=== PATIENT | female | born 1985 | race Caucasian/White ===

== ENCOUNTER 2019-06-25 20:55 | Emergency (ER) | payer OTHER, SELFPAY ==
[2019-06-25 21:01] VITALS: BP 122/66; PULSE 88; RESP 18; TEMP 36.8; O2SAT 96
--- NOTE | 2019-06-25 21:03 | ED_ITS ---
HPI - General Adult General Chief complaint: Abdominal Pain Stated complaint: wants kidneys checked out Time Seen by Provider: 06/25/19 20:59 Source: patient Mode of arrival: Ambulatory Limitations: no limitations History of Present Illness HPI narrative: 34-year-old female here for evaluation of bilateral lower tho racic back pain. Has been going on for the past several weeks. She has chronic back pain from a pelvis fracture however she states this is different from that. She is concerned that potentially is a kidney issue and once her kidneys checked. Has not tried anything for her symptoms prior to arrival Related Data Home Medications Medication Instructions Recorded Confirmed ACETAMINOPHEN #0 02/15/12 [OXYCODONE] 5 mg PO #0 02/15/12 levothyroxine [Synthroid] #0 11/18/16 Previous Rx's Medication Instructions Recorded phenazopyridine [Pyridium] 200 mg PO TID PRN 2 Days #0 tab 11/18/16 sulfamethoxazole-trimethoprim 1 tab PO BID 5 Days #0 tab 11/18/16 Review of Systems Constitutional Constitutional: Denies fever(s) Cardiovascular Cardiovascular: Denies chest pain and Denies dyspnea Respiratory Respiratory: Denies dyspnea Gastrointestinal Gastrointestinal: Denies abdominal pain Genitourinary Genitourinary: Denies dysuria and Denies vaginal discharge Musculoskeletal Musculoskeletal: Reports back pain Integumentary/Breasts Skin/Breast: Denies rash Neurologic Neurologic: Denies behavioral changes Psychiatric Psychiatric: Denies behavioral changes Hematologic/Lymphatic Hematologic/Lymphatic: Denies easy bleeding and Denies easy bruising Patient History Medical History UTI (urinary tract infection) (Inactive) Social History lives independently: Yes Exam Initial Vital Signs Initial Vital Signs: Vital Signs Temperature 98.2 F 06/25/19 21:01 Pulse Rate 88 06/25/19 21:01 Respiratory Rate 18 06/25/19 21:01 Blood Pressure 122/66 06/25/19 21:01 Pulse Oximetry 96 06/25/19 21:01 Const General: cooperative and comfortable Resp Effort & Inspection: normal respiratory effort Auscultation: clear to auscultation bilaterally Cardio Rate: regular rate Rhythm: regular rhythm Back/Spine/Pelvis Thoracic/Lumbar Spine: paraspinal tenderness, No thoracic spinal tenderness and No lumbar spinal tenderness Skin Lesions: no lesions Rashes: no rashes Neuro General: alert and awake Cognition: normal cognition Speech: speech normal Extrem General: normal to inspection and capillary refill normal Psych Appearance: grossly normal and well kempt Course Orders Ordered: ED Orders 06/25/19 21:13 Basic Metabolic Panel Stat 06/25/19 21:20 Urine Culture Stat Urine Microscopic Stat Vital Signs Vital signs: Vital Signs - 8 hr 06/25/19 21:01 Temperature 98.2 F Pulse Rate 88 Respiratory Rate 18 Blood Pressure 122/66 Pulse Oximetry 96 Medical Decision Making Lab Data Lab results reviewed: Yes I reviewed the patient's lab results. Result diagrams: 06/25/19 21:13 Labs: Lab Results 06/25/19 06/25/19 Range/Units 21:13 21:20 Sodium 139 (137-145) mmol/L Potassium 3.9 (3.4-5.1) mmol/L Chloride 103 (98-107) mmol/L Carbon Dioxide 30 (22-32) mmol/L BUN 13 (7-17) mg/dL Creatinine 0.80 (0.52-1.04) mg/dL Estimated GFR > 60.0 (>60) mL/min BUN/Creatinine Ratio 16.3 (6-22) Glucose 85 (70-100) mg/dL Calcium 9.6 (8.4-10.2) mg/dL Urine RBC None seen (0-5/HPF) Urine WBC 1-5/hpf (0-5/HPF) Ur Squamous Epith Cells 1-5 /hpf (0-5/HPF) Urine Bacteria Few (2-10) H (None) Ur Culture Indicated? Specimen cultured Point of Care Testing Test Results Negative Urine Dip Bedside Urine Glucose Negative Bedside Urine Bilirubin - Negative Bedside Urine Ketone +/- 5 Urine Specific [place] 1.015 Bedside Urine Occult Blood +/- Bedside Urine pH 7.0 Bedside Urine Protein +/- 15 Bedside Urine Urobilinogen +/- 1mg Bedside Urine Nitrite - Negative Bedside Urine Leukocytes + 70 Esterase Point of care testing: Point of Care Testing Test Results Negative Urine Dip Bedside Urine Glucose Negative Bedside Urine Bilirubin - Negative Bedside Urine Ketone +/- 5 Urine Specific [place] 1.015 Bedside Urine Occult Blood +/- Bedside Urine pH 7.0 Bedside Urine Protein +/- 15 Bedside Urine Urobilinogen +/- 1mg Bedside Urine Nitrite - Negative Bedside Urine Leukocytes + 70 Esterase MDM Narrative Medical decision making narrative: Kidney functions unremarkable, UA is unremarkable. Urine culture was pending at the time of discharge patient was informed of this. Will hold on further workup for now. Suspect musculoskeletal etiology. Patient was given return precautions and follow-up instructions. She expressed understanding and agreement plan. Discharge Plan Departure Patient Disposition: Home Clinical Impression: Bilateral thoracic back pain Qualifiers: Chronicity: acute Qualified Code(s): M54.6 - Pain in thoracic spine Instructions: DI for Thoracic Back Pain Activity Restrictions/Additional Instructions: Recommend you talk with your primary doctor about the indications for referral to see physical therapy. You can take anti-inflammatories such as Motrin or N aprosyn. Return to the emergency department for any new symptoms Prescriptions: No Action ACETAMINOPHEN Qty: 0 RF: 0 [OXYCODONE] 5 mg PO Qty: 0 RF: 0 levothyroxine [Synthroid] 25 mcg tablet Qty: 0 RF: 0 phenazopyridine [Pyridium] 200 MG tablet 200 mg PO TID PRN2 Days Qty: 0 RF: 0 sulfamethoxazole-trimethoprim 800 MG/160 MG tablet 1 tab PO BID 5 Days Qty: 0 RF: 0
[2019-06-25 21:29] LABS: RBC Urine None Seen (0-5/HPF)
[2019-06-25 21:31] LABS: BUN Creatinine Ratio 16.3 (6-22); Blood Urea Nitrogen 13 mg/dL (7-17); Calcium 9.6 mg/dL (8.4-10.2); Carbon Dioxide 30 mmol/L (22-32); Chloride 103 mmol/L (98-107); Estimated Glomerular Filt Rate > 60.0 mL/min (>60); Glucose 85 mg/dL (70-100); HEMOLYSIS < 15 (0-50); Potassium 3.9 mmol/L (3.4-5.1); Sodium 139 mmol/L (137-145)
[2019-06-25 21:43] LABS: Bacteria Urine Few (2-10); Culture Indicated Urine Specimen Cultured; Squamous Epithelial Cell Urine 1-5 /HPF (0-5/HPF); WBC Urine 1-5/HPF (0-5/HPF)
[2019-06-25 22:06] VITALS: BP 111/72; PULSE 78; RESP 14; O2SAT 97
== END 2019-06-25 22:06 | disposition home or self-care (01) ==
PROVIDERS: Emergency Provider Emergency Medicine
DX: M54.6 Pain in thoracic spine (principal)
CPT/HCPCS: 36415; 80048; 81003; 81015; 81025; 87086; 99282; 99283

== ENCOUNTER 2021-07-08 15:18 | Emergency (ER) | payer OTHER, SELFPAY ==
[2021-07-08 15:23] VITALS: BP 160/65; PULSE 99; RESP 17; TEMP 36.2; O2SAT 99; BMI 22.3
--- NOTE | 2021-07-08 15:27 | DI.RAD.S_ITS ---
PROCEDURE: XR FINGER LT MIN 2V INDICATIONS: crush injury TECHNIQUE: AP hand, 2 views of the left 2nd finger(s) acquired. COMPARISON: None. FINDINGS: Bones: No fractures or dislocations. No suspicious bony lesions. Soft tissues: No suspicious soft tissue calcifications. No radiodense foreign body. No soft tissue gas. IMPRESSION: No fracture. No osseous lesion. If symptoms and/or clinical suspicion for pathology persists, further assessment with repeat radiographs (7-10 days) or advanced imaging (e.g. CT, MRI or bone scan) should be considered. Dictated by: Arianne Archer MD, PhD on 07/08/2021 at 15:13 Approved by: Arianne Archer MD, PhD on 07/08/2021 at 15:13
[2021-07-08] MEDS: ACETAMINOPHEN 325 MG TABLET 650 MG PO (15:31)
[2021-07-08] MEDS: IBUPROFEN 400 MG TABLET 800 MG PO (15:31)
[2021-07-08] MEDS: LIDO 1%/SOD BICARB 8.4% (10ML) 10 ML SYRINGE INJ (16:30)
[2021-07-08] MEDS: TET,DIPH,PERTUSS(ACELL),VAC/PF 0.5 ML SYRINGE IM (16:30)
--- NOTE | 2021-07-08 17:00 | ED.SKABFB ---
HPI - Skin/Abscess/Foreign Bdy General Chief complaint: Skin/Abscess/Foreign Body Stated complaint: lt index finger cut Time Seen by Provider: 07/08/21 16:20 Source: patient Mode of arrival: Ambulatory Limitations: no limitations History of Present Illness HPI narrative: 36-year-old female former smoker with noncontributory medical history presents with a chief complaint of an accidental laceration to her left index finger just prior to arrival. She and her daughter were attempting to take the blades off of a small when male down because it was very windy, the blade cut her finger and she suffered a laceration with bleeding. She denies any numbness or tingling. She denies other injury and is otherwise well and free of complaint. Patient will need a tetanus update Related Data Home Medications Medication Instructions Recorded Confirmed ACETAMINOPHEN #0 02/15/12 [OXYCODONE] 5 mg PO #0 02/15/12 levothyroxine 25 mcg tablet #0 11/18/16 (Synthroid) Previous Rx's Medication Instructions Recorded phenazopyridine 200 mg tablet 200 mg PO TID PRN 2 Days #0 tab 11/18/16 (Pyridium) sulfamethoxazole 800 1 tab PO BID 5 Days #0 tab 11/18/16 mg-trimethoprim 160 mg tablet cephalexin 500 mg capsule 500 mg PO Q6H 7 Days #28 cap 07/08/21 Allergies Allergy/AdvReac Type Severity Reaction Status Date / Time No Known Drug Allergies Allergy Verified 07/08/21 15:26 Review of Systems Review of Systems Narrative: GENERAL: Denies chills, fatigue, malaise, fever, sweats. HEENT: Denies sinus pain, ear pain, sore throat, difficulty swallowing, dizziness. RESPIRATORY: Denies dyspnea, cough, wheezing, hemoptysis, sputum. CARDIOVASCULAR: Denies chest pain, palpitations, orthopnea, edema, GASTROINTESTINAL: Denies nausea, vomiting, abdominal pain, diarrhea, constipation, melena. : Denies dysuria, frequency, incontinence, hematuria, urinary retention. MUSCULOSKELETAL: See HPI SKIN: See HPI NEUROLOGIC: See HPI PSYCHIATRIC: No concerning psychosocial issues. 12 point review of systems is negative except for those stated above Patient History Medical History UTI (urinary tract infection) Social History lives independently: Yes Smoking Status: Former smoker Smoking Status: Former smoker alcohol intake frequency: 0-2 drinks per day Substance Use Type: does not use Exam Narrative Exam Narrative: GEN: AOx3 and in mild distress EYES: Pupils are equal, round, and reactive to light and accommodation. Extraoccular muscles are intact bilaterally. There is no subconjunctival hemorrhage or exudate. CHEST: Lungs are clear to auscultation bilaterally and free of wheezes, rales, or rhonchi. Heart rate is regular rhythm, there are no murmurs, clicks, rubs, or gallops. There is no chest wall tenderness. ABD: Abdomen is soft and nontender. There is no guarding or rebound. Bowel sounds are normal in all 4 quadrants. There is no mass or organomegaly. EXT: 1.5cm flap laceration on volar surface of left index finger near DIP. No foreign body noted. Sensation intact. No tendon injury when viewed in a bloodless field. Full painless ROM of all extremities with no loss of sensation or strength. SKIN: Warm, pink, and dry. No erythema or rash Initial Vital Signs Initial Vital Signs: Vital Signs Temperature 97.2 F L 07/08/21 15:23 Pulse Rate 99 H 07/08/21 15:23 Respiratory Rate 17 07/08/21 15:23 Blood Pressure 160/65 H 07/08/21 15:23 Pulse Oximetry 99 07/08/21 15:23 Procedures Laceration Repair Laceration 1: Site: hand Side (If applicable): left Size (cm): 1.5 Description: flap Depth: simple, single layer Pre-repair: wound explored and irrigated extensively Skin layer closed with: nylon Size (cm): 5-0 Number of sutures: 6 Technique: simple, interrupted Nerve Block Nerve Block 1: Time out performed: Yes Local Anesthetic: lidocaine 1% and with bicarb Amount of anesthesia used (mL): 4 Side: left Nerve Blocks: digital Orthopedic Splinting/Casting Injury #1: Side: left Upper Extremity Injury Location: finger Upper Extremity Immobilizer: aluminum form splint Course Orders Ordered: Discontinued Medications Acetaminophen (Acetaminophen 325 Mg Tablet) 650 mg PO NOW ONE Stop: 07/08/21 15:28 Last Admin: 07/08/21 15:31 Dose: 650 mg Documented by: SHAUNNA Diphtheria/Tetanus/Acell Pertussis (Tet,Diph,Pertuss(Acell),Vac/Pf 0.5 Ml Syringe) 0.5 ml IM .ONCE ONE Stop: 07/08/21 15:28 Last Admin: 07/08/21 16:30 Dose: 0.5 ml Documented by: SWEETIEONEVince Ibuprofen (Ibuprofen 400 Mg Tablet) 800 mg PO NOW ONE Stop: 07/08/21 15:28 Last Admin: 07/08/21 15:31 Dose: 800 mg Documented by: SHAUNNA Lidocaine/Sodium Bicarbonate (Lido 1%/Sod Bicarb 8.4% (10ml) 10 Ml Syringe) 10 ml INJ NOW ONE Stop: 07/08/21 16:22 Last Admin: 07/08/21 16:30 Dose: 10 ml Documented by: SWEETIEONEVince Vital Signs Vital signs: Vital Signs - 8 hr 07/08/21 15:23 Temperature 97.2 F L Pulse Rate 99 H Respiratory Rate 17 Blood Pressure 160/65 H Pulse Oximetry 99 MDM - Skin/Abscess/Foreign Bdy Imaging Data Extremity x-ray #1: Radiologist's Impression: Esperanza Arrington??36??F??1985 ? Allergy/Adv: No Known Drug Allergies (More??) Close Finger X-Ray (Signed) Arianne Archer - 07/08/21 [place] [address] XRay Report Signed Patient: Esperanza Arrington MR#: [id number] : 1985 Acct:[id number] Age/Sex: 36 / F Date of Service: 07/08/21 Loc: ED Accession Number: [id number] ?? Procedure: XR finger LT min 2V Ordering Provider: Luis Jones D.O. PROCEDURE:? XR FINGER LT MIN 2V ? INDICATIONS:? crush injury ? TECHNIQUE:? AP hand, 2 views of the left 2nd finger(s) acquired.? ? COMPARISON:? None. ? FINDINGS:? ? Bones:? No fractures or dislocations.? No suspicious bony lesions.? ? Soft tissues:? No suspicious soft tissue calcifications.? No radiodense foreign body.? No soft tissue gas.? ? IMPRESSION:? No fracture. No osseous lesion. If symptoms and/or clinical suspicion for pathology persists, further assessment with repeat radiographs (7-10 days) or advanced imaging (e.g. CT, MRI or bone scan) should be considered. ? ? Dictated by: Arianne Archer MD, PhD on 07/08/2021 at 15:13 ? ? Approved by: Arianne Archer MD, PhD on 07/08/2021 at 15:13? Discharge Plan Departure Patient Disposition: Home Clinical Impression: Laceration of left index finger Instructions: DI for Laceration Repair Activity Restrictions/Additional Instructions: *You have been diagnosed with [left index finger laceration, no evidence of foreign body, bony injury or tendon laceration *What to do: *Please continue to take your regular medications as directed. [x ] New medication prescriptions sent to your pharmacy: [[facility] in [place]] [ ] New medication written as a paper prescription [ ] No new medications given * Please keep the wound clean and dry to the best of your ability. Please monitor for signs of infection such as redness to the skin or increasing pain. Have the sutures/lamont removed by your doctor in about 7 days. If you are unable to get into your doctor, we would be happy to remove the sutures/lamont in that same timeframe. *If you do not have a primary care provider please contact the [facility] Resource line at [phone]. They will ask some questions about your medical history and help get you set up with a doctor in the community. *Return to Emergency Department if you should have any new, worsening or concerning symptoms, such as [fever greater than 101 F, shaking chills, worsening pain, persistent vomiting or other bothersome symptoms] Prescriptions: New cephalexin 500 mg capsule 500 mg PO Q6H 7 Days Qty: 28 0RF No Action ACETAMINOPHEN Qty: 0 0RF [OXYCODONE] 5 mg PO Qty: 0 0RF levothyroxine [Synthroid] 25 mcg tablet Qty: 0 0RF phenazopyridine [Pyridium] 200 MG tablet 200 mg PO TID PRN2 Days Qty: 0 0RF sulfamethoxazole-trimethoprim 800 MG/160 MG tablet 1 tab PO BID 5 Days Qty: 0 0RF
[2021-07-08 17:23] VITALS: BP 127/76; O2SAT 94
== END 2021-07-08 17:26 | disposition home or self-care (01) ==
PROVIDERS: Emergency Provider Emergency Medicine
DX: S61.211A Laceration without foreign body of left index finger without damage to nail, initial encounter (principal); W26.8XXA Contact with other sharp object(s), not elsewhere classified, initial encounter; Z23 Encounter for immunization
CPT/HCPCS: 12001; 64450; 73140; 90471; 99283; 99284; 90715

== ENCOUNTER 2021-11-20 22:49 | Emergency (ER) | payer OTHER, SELFPAY ==
[2021-11-20 23:01] VITALS: BP 117/56; PULSE 88; RESP 16; TEMP 37.2; O2SAT 98; BMI 22.3
--- NOTE | 2021-11-20 23:13 | DI.RAD.S_ITS ---
PROCEDURE: XR KNEE LT 1TO2V INDICATIONS: spurred by rooster, puncture to medial aspect, swelling/pain TECHNIQUE: 2 views of the knee were acquired. COMPARISON: None. FINDINGS: Bones: No fractures or dislocations. No suspicious bony lesions. Soft tissues: No joint effusion. No suspicious soft tissue calcifications. IMPRESSION: No trauma found, no effusion identified. No gas in the soft tissues seen. Dictated by: Phillip Graham M.D. on 11/20/2021 at 23:49 Approved by: Phillip Graham M.D. on 11/20/2021 at 23:50
--- NOTE | 2021-11-21 00:09 | ED_ITS ---
HPI - Skin/Abscess/Foreign Bdy General Chief complaint: Skin/Abscess/Foreign Body Stated complaint: Left knee injury/rooster attack Time Seen by Provider: 11/21/21 00:05 Source: patient Mode of arrival: Wheelchair Limitations: no limitations History of Present Illness HPI narrative: 36F former smoker with noncontributory medical history presents with her and chief complaint of an injury to her left knee earlier today when interacting with a 1.5 year old rooster that struck her in the knee with it's spur. There is a small puncture wound on the medial aspect of her knee, she immediately felt pain in had difficulty with ambulation while working throughout the day but admits to having significantly improved symptoms over the evening. She does have a moderate bit of swelling but no redness, red streaks nor fever or chills. She does not feel any instability or wobbly sensation to her knee. She states it hurts with ambulation and active range of motion. Related Data Home Medications Medication Instructions Recorded Confirmed ACETAMINOPHEN #0 02/15/12 [OXYCODONE] 5 mg PO #0 02/15/12 levothyroxine 25 mcg tablet #0 11/18/16 (Synthroid) Previous Rx's Medication Instructions Recorded phenazopyridine 200 mg tablet 200 mg PO TID PRN 2 Days #0 tab 11/18/16 (Pyridium) sulfamethoxazole 800 1 tab PO BID 5 Days #0 tab 11/18/16 mg-trimethoprim 160 mg tablet Allergies Allergy/AdvReac Type Severity Reaction Status Date / Time No Known Drug Allergies Allergy Verified 07/08/21 15:26 Review of Systems Review of Systems Narrative: GENERAL: Denies chills, fatigue, malaise, fever, sweats. HEENT: Denies sinus pain, ear pain, sore throat, difficulty swallowing, dizziness. RESPIRATORY: Denies dyspnea, cough, wheezing, hemoptysis, sputum. CARDIOVASCULAR: Denies chest pain, palpitations, orthopnea, edema, GASTROINTESTINAL: Denies nausea, vomiting, abdominal pain, diarrhea, constipation, melena. : Denies dysuria, frequency, incontinence, hematuria, urinary retention. MUSCULOSKELETAL: See HPI SKIN: Denies rash, skin lesions, or other NEUROLOGIC: Denies weakness, headache, numbness, change in speech, confusion, seizures, incoordination. PSYCHIATRIC: No concerning psychosocial issues. 12 point review of systems is negative except for those stated above Patient History Medical History UTI (urinary tract infection) Social History lives independently: Yes Smoking Status: Former smoker Smoking Status: Former smoker alcohol intake frequency: 0-2 drinks per day Substance Use Type: does not use Exam Narrative Exam Narrative: GENERAL: [36] year old patient appears stated age. Well-developed patient, in mild distress. HEAD: Atraumatic. Normocephalic. EYES: Pupils equal round and reactive. Extraocular motions intact. No scleral icterus. No injection or drainage. ENT: Nose without bleeding, purulent drainage. Throat without erythema, tonsillar hypertrophy or exudate. Airway patent. NECK: Trachea midline. Non tender CARDIOVASCULAR: Regular rate and rhythm without murmurs, gallops, or rubs. RESPIRATORY: Clear to auscultation. Breath sounds equal bilaterally. No wheezes, rales, or rhonchi. GASTROINTESTINAL: Abdomen soft, non-tender, nondistended. EXTREMITIES: Moderate effusion left knee, no bony tenderness or ligamentous instability, small puncture wound without bleeding or drainage noted on medial aspect of knee. No erythema, warmth or lymphangitis. No pain on passive range of motion. BACK: Nontender without deformity or crepitance. No flank tenderness. NEURO: AOx3. SKIN: No rash or erythema of visible areas Initial Vital Signs Initial Vital Signs: Vital Signs Temperature 99.0 F 11/20/21 23:01 Pulse Rate 88 11/20/21 23:01 Respiratory Rate 16 11/20/21 23:01 Blood Pressure 117/56 L 11/20/21 23:01 Pulse Oximetry 98 11/20/21 23:01 Course Orders Ordered: ED Orders 11/20/21 23:13 XR knee LT 1to2V Stat Consultations Consultation #1: Discussed with on-call orthopedist, we sure the opinion that given circumstances, this is most likely a mechanical injury and swelling is traumatic as opposed to infectious. There is no redness or warmth and no sign of septic arthritis. We discussed prophylactic antibiotics but given lack of sign of infection would prefer to hold off and encouraged close follow-up Vital Signs Vital signs: Vital Signs - 8 hr 06/04/22 23:01 Temperature 99.0 F Pulse Rate 88 Respiratory Rate 16 Blood Pressure 117/56 L Pulse Oximetry 98 MDM - Skin/Abscess/Foreign Bdy Imaging Data Extremity x-ray #1: Radiologist's Impression: Esperanza Arrington??36??F??1985 ? Allergy/Adv: No Known Drug Allergies (More??) Close Knee X-Ray (Signed) Phillip Graham - 11/20/21 Finger X-Ray (Signed) Arianne Archer - 07/08/21 Launch?[address] [address] XRay Report Signed Patient: Esperanza Arrington MR#: [id number] : 1985 Acct:[id number] Age/Sex: 36 / F Date of Service: 11/20/21 Loc: ED Accession Number: [id number] ?? Proced PROCEDURE:? XR KNEE LT 1TO2V ? INDICATIONS:? spurred by rooster, puncture to medial aspect, swelling/pain ? TECHNIQUE:? 2 views of the knee were acquired.? ? COMPARISON:? None. ? FINDINGS:? ? Bones:? No fractures or dislocations.? No suspicious bony lesions.? ? Soft tissues:? No joint effusion.? No suspicious soft tissue calcifications.? ? ? IMPRESSION:? No trauma found, no effusion identified.? No gas in the soft tissues seen. ? ? Dictated by: Phillip Graham M.D. on 11/20/2021 at 23:49 ? ? Approved by: Phillip Graham M.D. on 11/20/2021 at 23:50 ? Discharge Plan Departure Patient Disposition: Home Clinical Impression: Injury of knee, left Instructions: DI for Knee Pain Activity Restrictions/Additional Instructions: *You have been diagnosed with [left knee injury. As we discussed your history and physical exam as well as x-ray are reassuring. I had a lengthy conversation with the orthopedist and we sure the opinion that the pain and swelling is most likely a consequence of a mechanical injury as opposed to infection but will need to follow closely. *What to do: *Please continue to take your regular medications as directed. [ ] New medication prescriptions sent to your pharmacy: [ ] [ ] New medication written as a paper prescription [x ] No new medications given *Please follow up with your primary care provider in 2-3 days, call for an appointment. Let them know you were seen in the Emergency Department and that we ask that you be seen in follow up. We will electronically transmit a record of today's note if your PCP is in our system *If you do not have a primary care provider please contact the [facility] Resource line at [phone]. They will ask some questions about your medical history and help get you set up with a doctor in the community. *Return to Emergency Department if you should have any new, worsening or concerning symptoms, such as [fever greater than 101 F, shaking chills, worsening pain, persistent vomiting, increased swelling, redness, red streaks or other bothersome symptoms] Prescriptions: No Action ACETAMINOPHEN Qty: 0 0RF [OXYCODONE] 5 mg PO Qty: 0 0RF levothyroxine [Synthroid] 25 mcg tablet Qty: 0 0RF phenazopyridine [Pyridium] 200 MG tablet 200 mg PO TID PRN2 Days Qty: 0 0RF sulfamethoxazole-trimethoprim 800 MG/160 MG tablet 1 tab PO BID 5 Days Qty: 0 0RF Stand Alone Forms: Work Release Note Visit Report Forms: Patient Portal/API
[2021-11-21 01:31] VITALS: BP 101/56; PULSE 87; RESP 15; O2SAT 98
== END 2021-11-21 01:33 | disposition home or self-care (01) ==
PROVIDERS: Emergency Provider Emergency Medicine
DX: S81.032A Puncture wound without foreign body, left knee, initial encounter (principal); W61.32XA Struck by chicken, initial encounter
CPT/HCPCS: 73560; 99281; 99282

== ENCOUNTER 2023-05-30 06:47 | Emergency (ER) | payer OTHER, SELFPAY ==
[2023-05-30] VITALS (11 sets, daily range): BP systolic 101–117; BP diastolic 55–77; PULSE 86–115; RESP 20–24; TEMP 37.8–38; O2SAT 94–99; BMI 20.5
--- NOTE | 2023-05-30 07:04 | ED.FEVER ---
HPI - Fever General Chief Complaint: Upper Respiratory Symptoms Stated Complaint: fever, got kicked by horse on ribs Time Seen by Provider: 05/30/23 06:57 Source: patient Mode of arrival: Ambulatory Limitations: no limitations History of Present Illness HPI Narrative: This is a 38-year-old female with history of prior pelvic fracture from riding horses who presents with complaint fever, cough, mild shortness of breath and nausea starting overnight. Patient states that she was kicked in her right lower chest upper abdomen on Monday, 3 days ago. Patient states she had a lot of layers she does not have any obvious bruising on her chest but did have a little bit tracking down thigh. She notes that has not really been painful. She states she was surprised by this. She has not had any nasal congestion. She denies any head injury. No neck or back pain. She has felt a little short of breath. She states her cough has been a little bit productive but has not looked at it she is just swallowed it. Patient states nausea but no vomiting. Patient states she is had some loose stools. She states that is not totally atypical. No black or blood noted. No dysuria, urgency or frequency. No back or flank pain. Besides bruising her right thigh she has not appreciated any other skin changes. She states the hopes of the horse sort of dragged down her leg and and chest which is why she is the bruising on her leg. Patient states no daily medications. She has had prior surgical fixation for pelvic fracture in the past from riding horses. She states it was a different hoarse. No known drug allergies. Former smoker, drinks 1 alcoholic drink every couple weeks. Denies any recreational drugs. 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 Related Data Home Medications Medication Instructions Recorded Confirmed ACETAMINOPHEN ##0 02/15/12 [OXYCODONE] 5 mg PO ##0 02/15/12 levothyroxine 25 mcg tablet ##0 11/18/16 (Synthroid) Previous Rx's Medication Instructions Recorded phenazopyridine 200 mg tablet 200 mg PO TID PRN 2 days #0 tabs 11/18/16 (Pyridium) sulfamethoxazole 800 1 tab PO BID 5 days #0 tabs 11/18/16 mg-trimethoprim 160 mg tablet azithromycin 250 mg tablet 250 mg PO DAILY 4 days #4 tabs 05/30/23 Allergies Allergy/AdvReac Type Severity Reaction Status Date / Time No Known Drug Allergies Allergy Verified 07/08/21 15:26 Review of Systems Review of Systems ROS Unobtainable: All systems reviewed & are unremarkable except as noted in HPI and below Patient History Medical History UTI (urinary tract infection) Social History lives independently: Yes Smoking Status: Former smoker Smoking Status: Former smoker alcohol intake frequency: 0-2 drinks per day Substance Use Type: does not use Exam Narrative Exam Narrative: GEN: Patient appears in mild distress. HEAD: No evidence of trauma, no raccoon/Foy sign. Patient is warm to the touch. NECK: Nontender, painless range of motion, trachea midline Negative for Nexus criteria, there is no midline line tenderness, distracting injury, altered mental status, neuro deficit, recent EtOH. EYES: PERRLA, EOMI ENT: External inspection normal, trachea is midline, TM's are normal no hemotypanum, Nares are clear patient does have some nasal congestion, no septal hematoma, no dental or oral injury, airway is normal and with normal occlusion, No bony tenderness RESP: Chest is nontender and has symmetric movement, no ecchymosis, breath sounds are normal no crackles, wheezes or rales, patient has mild dry cough. CVS: Heart sounds are normal, no murmur noted, No JVD. ABG/GI: Nontender, soft, normal bowel sounds, no distention, no organomegaly, pelvic rock is negative NEURO: Oriented AOx3, neuro is grossly intact, sensation and motor is normal all 4 extremities moving, cranial nerves II through XII are intact, GCS is 15 PSYCH: Normal mood and affect SKIN: Intact, warm and dry, no crepitus and without decubitus, no ecchymosis or skin changes to the torso. BACK: No CVA tenderness, no vertebral tenderness, no step-off's, no crepitus EXT: Atraumatic the ecchymosis to the right thigh, hips are nontender, no pedal edema, normal color and temperature, normal range of motion of extremities with normal tendon exam, 2+ pulses in all four extremities Initial Vital Signs Initial Vital Signs: Vital Signs Pulse Rate 115 H 05/30/23 06:53 Blood Pressure 110/63 05/30/23 06:53 Pulse Oximetry 99 05/30/23 06:53 Course Orders Ordered: ED Orders 05/30/23 07:16 CT chest abd pel w con Stat EKG-12 Lead Stat 05/30/23 07:35 Complete Blood Count AUTO DIFF Stat Comprehensive Metabolic Panel Stat Lactate (Lactic Acid) Stat Lipase Stat PTT Partial Thromboplastin Angelo Stat Procalcitonin Stat Prothrombin Time INR Stat Troponin & CK Cardiac Panel Stat 05/30/23 07:36 Urine Culture Stat Urine Microscopic Stat 05/30/23 08:20 Blood Culture Stat 05/30/23 08:21 Respiratory Panel (Film Array) Stat Discontinued Medications Acetaminophen (Acetaminophen 325 Mg Tablet) 975 mg PO NOW ONE Stop: 05/30/23 07:17 Last Admin: 05/30/23 08:05 Dose: 975 mg Documented By: DAHIANA Azithromycin (Azithromycin 250 Mg Tablet) 500 mg PO NOW ONE Stop: 05/30/23 08:57 Last Admin: 05/30/23 09:35 Dose: 500 mg Documented By: DAHIANA Sodium Chloride (Normal Saline 0.9%) 1,641 mls @ 547 mls/hr 30 ml/kg infuse over 3 hr (1641 ml) IV NOW ONE Stop: 05/30/23 10:15 Last Infusion: 05/30/23 09:54 Dose: Infused Documented By: Admin: 05/30/23 08:10 Dose: 547 mls/hr Documented By: DAHIANA Vital Signs Vital signs: Vital Signs - 8 hr 05/30/23 06:53 05/30/23 06:53 05/30/23 06:54 Temperature 100.4 F H Pulse Rate 115 H 115 H Respiratory Rate 20 Blood Pressure 110/63 110/63 Pulse Oximetry 99 99 Oxygen Delivery Method Room Air 05/30/23 07:00 05/30/23 07:00 05/30/23 07:54 Temperature Pulse Rate 100 H Respiratory Rate Blood Pressure 115/73 117/77 Pulse Oximetry 99 Oxygen Delivery Method 05/30/23 07:54 05/30/23 08:00 05/30/23 08:00 Temperature Pulse Rate 99 H 100 H Respiratory Rate 24 Blood Pressure 106/57 L Pulse Oximetry 98 98 Oxygen Delivery Method 05/30/23 08:29 05/30/23 08:30 05/30/23 08:30 Temperature 100.0 F H Pulse Rate 96 H Respiratory Rate 23 Blood Pressure 115/67 Pulse Oximetry 99 Oxygen Delivery Method 05/30/23 09:00 05/30/23 09:00 05/30/23 09:30 Temperature Pulse Rate 87 Respiratory Rate 21 Blood Pressure 103/59 L 101/55 L Pulse Oximetry 98 Oxygen Delivery Method 05/30/23 09:30 05/30/23 10:00 05/30/23 10:00 Temperature Pulse Rate 86 96 H Respiratory Rate 20 22 Blood Pressure 102/58 L Pulse Oximetry 96 94 Oxygen Delivery Method 05/30/23 10:30 05/30/23 10:30 Temperature Pulse Rate 97 H Respiratory Rate 21 Blood Pressure 105/59 L Pulse Oximetry 95 Oxygen Delivery Method MDM - Fever Lab Data 05/30/23 07:35 05/30/23 07:35 Labs: Lab Results 05/30/23 05/30/23 05/30/23 Range/Units 07:35 07:36 08:21 WBC 13.7 H (4.5-11.0) X10^3/uL RBC 4.39 (4.0-5.2) X10^6/uL Hgb 12.8 (12.0-16.0) g/dL Hct 38.2 (36-46) % MCV 87.2 (80-100) fL MCH 29.3 (26-34) PG MCHC 33.6 (30-36) % RDW 12.9 (11.6-14.8) % Plt Count 259 (150-400) X10^3/uL Neut % (Auto) 88.6 H (50-75) % Lymph % (Auto) 5.3 L (25-40) % Wagoner % (Auto) 5.7 (3-14) % Eos % (Auto) 0.1 L (2-4) % Baso % (Auto) 0.3 (0-2) % Neut # (Auto) 01680 H (4051-2222) /uL Lymph # (Auto) 700 L (8293-9056) /uL [place]er # (Auto) 800 (0-900) /uL Eos # (Auto) 0 (0-450) /uL Baso # (Auto) 0 (0-100) /uL PT 14.0 H (9.4-12.5) SECONDS INR 1.2 (0.9-1.3) APTT 29 (25.1-36.5) SECONDS Sodium 138 (137-145) mmol/L Potassium 3.9 (3.4-5.1) mmol/L Chloride 105 (98-107) mmol/L Carbon Dioxide 25 (22-32) mmol/L BUN 12 (7-17) mg/dL Creatinine 0.75 (0.52-1.04) mg/dL Estimated GFR > 60 (>60) mL/min BUN/Creatinine Ratio 16.0 (6-22) Glucose 120 H (70-100) mg/dL Lactate 1.1 (0.7-2.1) mmol/L Calcium 9.8 (8.4-10.2) mg/dL Total Bilirubin 0.6 (0.2-1.3) mg/dL AST 24 (14-36) IU/L ALT 20 (<35) IU/L Alkaline Phosphatase 66 (38-126) U/L Total Creatine Kinase 32 (30-135) U/L Troponin I < 0.012 (0.01-0.034) ng/mL Total Protein 7.7 (6.3-8.2) g/dL Albumin 4.4 (3.5-5.0) g/dL Globulin 3.3 (1.7-4.1) g/dL Albumin/Globulin Ratio 1.3 (1.0-2.8) Lipase 51 (23-300) U/L Procalcitonin 0.04 (<0.5) ng/mL Urine RBC 0-1/hpf (0-5/HPF) Urine WBC 0-1/hpf (0-5/HPF) Ur Squamous Epith Cells 10-30 /hpf H D (0-5/HPF) Urine Bacteria Few (2-10) H (None) Urine Mucus 1+ H (Negative) Ur Culture Indicated? Cult not indicated Chlamy pneumoniae PCR Not detected (Not Detect) Adenovirus (PCR) Not detected (Not Detect) B.parapertussis DNA PCR Not detected (Not Detecte) Coronavirus OC43 (PCR) Not detected (Not Detect) Coronavirus HKU1 (PCR) Not detected (Not Detect) Coronavirus 229E (PCR) Not detected (Not Detect) SARS-CoV-2 (PCR) Not detected (Not Detecte) Coronavirus NL63 (PCR) Not detected (Not Detect) Human Metapneumovir PCR Not detected (Not Detect) Influenza Type A (PCR) Not detected (Not Detect) Influenza Type B (PCR) Not detected (Not Detect) M. pneumoniae (PCR) Not detected (Not Detect) Parainfluenza 1 (PCR) Not detected (Not Detect) Parainfluenza 2 (PCR) Not detected (Not Detect) Parainfluenza 3 (PCR) Not detected (Not Detect) Parainfluenza 4 (PCR) Not detected (Not Detect) RSV (PCR) Not detected (Not Detect) Entero/Rhino (PCR) Not detected (Not Detect) Point of Care Testing Test Results Negative Urine Dip Bedside Urine Glucose Negative Bedside Urine Bilirubin - Negative Bedside Urine Ketone - Negative Urine Specific [place] 1.020 Bedside Urine Occult Blood - Negative Bedside Urine pH 6.5 Bedside Urine Protein - Negative Bedside Urine Urobilinogen - Negative Bedside Urine Nitrite - Negative Bedside Urine Leukocytes - Negative Esterase Imaging Data CT chest/abd/pelvis: Radiologist's Impression: [place] [address] CT Scan Report Signed Patient: Esperanza Arrington MR#: [id number] : 1985 Acct:[id number] Age/Sex: 38 / F Date of Service: 05/30/23 Loc: Accession Number: [id number] Procedure: CT chest abd pel w con Ordering Provider: Tereza May D.O. PROCEDURE: CT CHEST ABD PEL W CON INDICATIONS: fever, cough x1 day, kicked r chest/abd by horse monday TECHNIQUE: After the administration of oral and intravenous contrast, axial sections acquired from the supraclavicular neck to the pubic symphysis. Coronal and sagittal reformats were performed. For radiation dose reduction, the following was used: automated exposure control, adjustment of mA and/or kV according to patient size. COMPARISON: [facility], CT, CHEST ABDOMEN PELVIS WITH CONTRAST, 10/01/2011, 19:04. Outside Film, CT, CT CHEST ABDOMEN PELVIS WITH TRAUMA, 10/01/2011, 19:04. FINDINGS: Image quality: Good Lungs and pleura: There are nodular consolidations mostly in the left lower lobe. Basilar scarring/atelectasis also seen. No pleural effusions. No pneumothorax. Mediastinum, heart, and esophagus: No hiatal hernia. Normal heart size. No pathologic lymph nodes by size criteria. No mediastinal hematoma. Chest wall and thyroid: Left thyroid nodule measures over 1.5 centimeters. Breast implants are present. Solid organs: Liver appears unremarkable. There is focal fat around the falciform ligament. No lacerations. Gallbladder is unremarkable. No pathologic dilation of the biliary tree or pancreatic duct. No splenic capsular hematoma or laceration. No adrenal nodule or hematoma. No suspicious renal lesions or evidence of traumatic injury. No hydronephrosis. Vessels and lymph nodes: The main portal vein appears patent. There is no abdominal aortic aneurysm or pathologic lymph nodes by size criteria. Bowel and peritoneum: No evidence of hemoperitoneum or small bowel obstruction. Body wall: Unremarkable Pelvis: Uterus is retroflexed. An IUD is in place. There are prominent adnexal vessels can sometimes be seen with pelvic congestion. Bladder is unremarkable, under distended. Bones: Pelvic fixation hardware in old traumatic deformities. There is metallic artifact around the pelvis. No acute fracture or traumatic subluxation of the thoracolumbar spine. IMPRESSION: Left lower lung nodular consolidations, probably infectious/inflammatory. No pneumothorax or hemothorax. Consider future imaging surveillance to assess for resolution. No other evidence of acute traumatic injury identified. Left thyroid nodule over 1.5 centimeters, consider nonurgent sonographic follow-up. Other findings above. Approved by: Rodger Gonzalez M.D. 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 Patient does have recent history significant for being kicked in the chest by horse at the right upper chest and abdomen. She does not have a lot of pain but has fever cough so concerning for potential intrathoracic or intra-abdominal injury. Patient's received 30 cc/kilos fluid bolus, Tylenol and had improvement of heart rate, fever. Blood pressure has been 102 systolic prior to discharge but patient has a low BMI in his quite small and this maybe close to her baseline she appears to run in the 110 from prior visit. CBC shows leukocytosis of 13.7 hemoglobin 12 leftward shift with platelets of 259. No bandemia. Coags are negative. CMP shows normal renal function, electrolytes glucose of 120 normal lactate at 1.1, LFTs and lipase were negative, procalcitonin is negative with a negative troponin as well. Urine point of care was negative. Microscopy showed shows 10-30 squamous epithelials few bacteria no red cells. Point of care is negative. Respiratory panel was negative. CT chest abdomen pelvis was obtained shows left-sided changes consistent with pneumonia. Patient was kicked on the right side. She states she did not fall or hit her left-sided any point she states standing. No other fractures or intrathoracic or intra-abdominal injuries noted. Patient received dose of oral antibiotic here for bacterial pneumonia. Vitals have improved she is felt safe for disposition home. Discussed return precautions. All questions answered. Discharge Plan Departure Patient Disposition: Home Clinical Impression: Pneumonia, Left thyroid nodule Activity Restrictions/Additional Instructions: You have incidental left thyroid nodule noted on your imaging. Please follow-up with your physician in the future to have this evaluated if it has not been already. Your imaging shows changes consistent with pneumonia on the left lung, it is recommended that you follow-up with primary care in the next 4-6 weeks to have repeat x-ray to make sure pneumonia has resolved. Take Tylenol up to a 1000 mg and/or ibuprofen up to 600 mg every 6 hours as needed for fevers. Take antibiotics until completed. You received your 1st dose of antibiotic today, you can start your oral prescription tomorrow. Prescription sent to [facility] in [place]. Please return for new or worsening symptoms increasing chest pain, shortness of breath, lightheadedness or passing out, persistent vomiting, black or bloody stools or other new or concerning changes. Prescriptions: New azithromycin 250 mg tablet 250 mg PO DAILY 4 Days Qty: 4 0RF Rx Instructions: You received 500 mg p.o. in the emergency department, start this dose of antibiotic tomorrow on 05/31/2023. No Action ACETAMINOPHEN Qty: 0 [OXYCODONE] 5 mg PO Qty: 0 levothyroxine [Synthroid] 25 mcg tablet Qty: 0 phenazopyridine [Pyridium] 200 MG tablet 200 mg PO TID PRN2 Days Qty: 0 0RF sulfamethoxazole-trimethoprim 800 MG/160 MG tablet 1 tab PO BID 5 Days Qty: 0 0RF Stand Alone Forms: Patient Portal/API, Work Release Note
--- NOTE | 2023-05-30 07:16 | DI.CT.S_ITS ---
PROCEDURE: CT CHEST ABD PEL W CON INDICATIONS: fever, cough x1 day, kicked r chest/abd by horse monday TECHNIQUE: After the administration of oral and intravenous contrast, axial sections acquired from the supraclavicular neck to the pubic symphysis. Coronal and sagittal reformats were performed. For radiation dose reduction, the following was used: automated exposure control, adjustment of mA and/or kV according to patient size. COMPARISON: [facility], CT, CHEST ABDOMEN PELVIS WITH CONTRAST, 10/01/2011, 19:04. Outside Film, CT, CT CHEST ABDOMEN PELVIS WITH TRAUMA, 10/01/2011, 19:04. FINDINGS: Image quality: Good Lungs and pleura: There are nodular consolidations mostly in the left lower lobe. Basilar scarring/atelectasis also seen. No pleural effusions. No pneumothorax. Mediastinum, heart, and esophagus: No hiatal hernia. Normal heart size. No pathologic lymph nodes by size criteria. No mediastinal hematoma. Chest wall and thyroid: Left thyroid nodule measures over 1.5 centimeters. Breast implants are present. Solid organs: Liver appears unremarkable. There is focal fat around the falciform ligament. No lacerations. Gallbladder is unremarkable. No pathologic dilation of the biliary tree or pancreatic duct. No splenic capsular hematoma or laceration. No adrenal nodule or hematoma. No suspicious renal lesions or evidence of traumatic injury. No hydronephrosis. Vessels and lymph nodes: The main portal vein appears patent. There is no abdominal aortic aneurysm or pathologic lymph nodes by size criteria. Bowel and peritoneum: No evidence of hemoperitoneum or small bowel obstruction. Body wall: Unremarkable Pelvis: Uterus is retroflexed. An IUD is in place. There are prominent adnexal vessels can sometimes be seen with pelvic congestion. Bladder is unremarkable, under distended. Bones: Pelvic fixation hardware in old traumatic deformities. There is metallic artifact around the pelvis. No acute fracture or traumatic subluxation of the thoracolumbar spine. IMPRESSION: Left lower lung nodular consolidations, probably infectious/inflammatory. No pneumothorax or hemothorax. Consider future imaging surveillance to assess for resolution. No other evidence of acute traumatic injury identified. Left thyroid nodule over 1.5 centimeters, consider nonurgent sonographic follow-up. Other findings above. Approved by: Rodger Gonzalez M.D. on 05/30/2023 at 8:43
[2023-05-30 07:53] LABS: Add Manual Diff / Slide Review NO; Basophils Absolute Auto 0 /uL (0-100); Basophils Percent Auto 0.3 % (0-2); Eosinophils Absolute Auto 0 /uL (0-450); Eosinophils Percent Auto 0.1 % (2-4); Hematocrit 38.2 % (36-46); Hemoglobin 12.8 g/dL (12.0-16.0); Lymphocytes Absolute Auto 700 /uL (1100-4500); Lymphocytes Percent Auto 5.3 % (25-40); Mean Corpuscular HGB Conc 33.6 % (30-36); Mean Corpuscular Hemoglobin 29.3 PG (26-34); Mean Corpuscular Volume 87.2 fL (80-100); Monocytes Absolute Auto 800 /uL (0-900); Monocytes Percent Auto 5.7 % (3-14); Neutrophils Absolute Auto 12100 /uL (1500-7000); Neutrophils Percent Auto 88.6 % (50-75); Platelet Count 259 X10^3/uL (150-400); Red Blood Cell Count 4.39 X10^6/uL (4.0-5.2); Red Cell Distribution Width 12.9 % (11.6-14.8); White Blood Cell Count 13.7 X10^3/uL (4.5-11.0)
[2023-05-30 08:01] LABS: INR 1.2 (0.9-1.3)
[2023-05-30] MEDS: ACETAMINOPHEN 325 MG TABLET 975 MG PO (08:05)
[2023-05-30 08:07] LABS: Lactate (Lactic Acid) 1.1 mmol/L (0.7-2.1)
[2023-05-30 08:08] LABS: Alanine Aminotransferase 20 IU/L (<35); Albumin 4.4 g/dL (3.5-5.0); Albumin Globulin Ratio 1.3 (1.0-2.8); Alkaline Phosphatase 66 U/L (38-126); Aspartate Aminotransferase 24 IU/L (14-36); Bilirubin Total 0.6 mg/dL (0.2-1.3); Blood Urea Nitrogen 12 mg/dL (7-17); Calcium 9.8 mg/dL (8.4-10.2); Carbon Dioxide 25 mmol/L (22-32); Chloride 105 mmol/L (98-107); Creatine Kinase 32 U/L (30-135); Estimated Glomerular Filt Rate > 60 mL/min (>60); Globulin 3.3 g/dL (1.7-4.1); Glucose 120 mg/dL (70-100); HEMOLYSIS < 15 (0-50); Lipase 51 U/L (23-300); Potassium 3.9 mmol/L (3.4-5.1); Sodium 138 mmol/L (137-145); Total Protein 7.7 g/dL (6.3-8.2)
[2023-05-30] MEDS: SODIUM CHLORIDE 0.9% 1,641 ML 547 ML IV (08:10)
[2023-05-30 08:11] LABS: PTT Partial Thromboplastin Tim 29 SECONDS (25.1-36.5)
[2023-05-30 08:12] LABS: Bacteria Urine Few (2-10); Mucus Urine 1+ (Negative); RBC Urine 0-1/HPF (0-5/HPF); Squamous Epithelial Cell Urine 10-30 /HPF (0-5/HPF); WBC Urine 0-1/HPF (0-5/HPF)
[2023-05-30 08:16] LABS: Culture Indicated Urine Cult Not Indicated
[2023-05-30 08:20] LABS: Troponin I < 0.012 ng/mL (0.01-0.034)
[2023-05-30 08:24] LABS: Procalcitonin 0.04 ng/mL (<0.5)
[2023-05-30 09:20] LABS: Adenovirus Not Detected (Not Detect); B. parapertussis Not Detected (Not Detecte); Bordetella pertussis Not Detected (Not Detect); Chlamydophila pneumoniae Not Detected (Not Detect); Coronavirus 229E Not Detected (Not Detect); Coronavirus HKU1 Not Detected (Not Detect); Coronavirus NL 63 Not Detected (Not Detect); Coronavirus OC43 Not Detected (Not Detect); Human Metapneumovirus Not Detected (Not Detect); Human Rhinovirus/Enterovirus Not Detected (Not Detect); Influenza A Not Detected (Not Detect); Influenza B Not Detected (Not Detect); Mycoplasma pneumoniae Not Detected (Not Detect); Parainfluenza Virus 1 Not Detected (Not Detect); Parainfluenza Virus 2 Not Detected (Not Detect); Parainfluenza Virus 3 Not Detected (Not Detect); Parainfluenza Virus 4 Not Detected (Not Detect); Respiratory Syncytial Virus Not Detected (Not Detect); SARS- CoV-2 Not Detected (Not Detecte)
[2023-05-30] MEDS: AZITHROMYCIN 250 MG TABLET 500 MG PO (09:35)
== END 2023-05-30 10:45 | disposition home or self-care (01) ==
PROVIDERS: Emergency Provider Emergency Medicine
DX: J18.9 Pneumonia, unspecified organism (principal); E04.1 Nontoxic single thyroid nodule; Z87.891 Personal history of nicotine dependence
CPT/HCPCS: 36415; 71260; 74177; 80053; 81003; 81015; 81025; 82550; 83605; 83690; 84145; 84484; 85025; 85610; 85730; 87040; 87086; 87633; 96360; 96361; 99284; Q9967

== ENCOUNTER 2023-06-05 13:15 | Emergency (ER) | payer OTHER, SELFPAY ==
[2023-06-05] VITALS (9 sets, daily range): BP systolic 104–119; BP diastolic 53–65; PULSE 79–113; RESP 20; TEMP 37; O2SAT 96–100; BMI 20.5
--- NOTE | 2023-06-05 13:45 | ED_ITS ---
HPI - Fever General Chief Complaint: Fever Stated Complaint: pneumonia last week got better now fever Time Seen by Provider: 06/05/23 13:33 Source: patient Mode of arrival: Ambulatory History of Present Illness HPI Narrative: Patient comes to the ED because of fatigue, malaise and fever. A week ago she was kicked by her horse and was seen 2 days after that and diagnosed with pneumonia and contusions but no dangerous injuries identified. She was put on azithromycin and was feeling quite a bit better by the end of the week including returning to work but now since yesterday she is begun to feel poorly again with intense fatigue rapid heart rate, some shortness of breath cough and low-grade fever. She took her last azithromycin dose on Monday. She does not smoke cigarettes nor does she have any chronic health conditions. She is some chronic low back pain because of a pelvic injury some years ago. Related Data Home Medications Medication Instructions Recorded Confirmed ACETAMINOPHEN ##0 02/15/12 [OXYCODONE] 5 mg PO ##0 02/15/12 levothyroxine 25 mcg tablet ##0 11/18/16 (Synthroid) Previous Rx's Medication Instructions Recorded phenazopyridine 200 mg tablet 200 mg PO TID PRN 2 days #0 tabs 11/18/16 (Pyridium) sulfamethoxazole 800 1 tab PO BID 5 days #0 tabs 11/18/16 mg-trimethoprim 160 mg tablet Allergies Allergy/AdvReac Type Severity Reaction Status Date / Time No Known Drug Allergies Allergy Verified 06/05/23 13:25 Patient History Medical History UTI (urinary tract infection) Social History lives independently: Yes Smoking Status: Former smoker Smoking Status: Former smoker alcohol intake frequency: 0-2 drinks per day Substance Use Type: does not use Exam Narrative Exam Narrative: GENERAL: Alert, cooperative and in no distress. HEAD: Atraumatic. Normocephalic. EYES: Sclera are clear without icterus. Extraocular movements are full. ENT: No rhinorrhea NECK: Supple. Full range of motion. CARDIOVASCULAR: Normal rate and rhythm without murmur gallop or rub. RESPIRATORY: Clear to auscultation. Breath sounds equal bilaterally. No wheezes, rales, or rhonchi. GASTROINTESTINAL: Abdomen soft, non-tender, nondistended. EXTREMITIES: No edema, full range of motion. No obvious trauma. BACK: Normal inspection, no CVA tenderness. NEURO: Nonfocal examination, normal speech SKIN: No rash or erythema of visible areas PSYCH: Normally oriented. Normal range of affect. Appropriate behavior Initial Vital Signs Initial Vital Signs: Vital Signs Temperature 98.6 F 06/05/23 13:25 Pulse Rate 113 H 06/05/23 13:25 Respiratory Rate 20 06/05/23 13:25 Blood Pressure 111/65 06/05/23 13:25 Pulse Oximetry 100 06/05/23 13:25 Oxygen Delivery Method Room Air 06/05/23 13:25 Course Orders Ordered: ED Orders 06/05/23 13:50 CBC Auto Diff [Complete Blood Count AUTO DIFF] Stat CMP [Comprehensive Metabolic Panel] Stat Covid-19 + FLU A/B + RSV - PCR Stat D Dimer Stat 06/05/23 14:32 UA dip and micro [Urinalysis and Microscopic] Stat Discontinued Medications Acetaminophen (Acetaminophen 325 Mg Tablet) 975 mg PO NOW ONE Stop: 06/05/23 13:44 Last Admin: 06/05/23 13:58 Dose: 975 mg Documented By: MARYSE Ibuprofen (Ibuprofen 400 Mg Tablet) 800 mg PO NOW ONE Stop: 06/05/23 13:44 Last Admin: 06/05/23 13:58 Dose: 800 mg Documented By: MARYSE Vital Signs Vital signs: Vital Signs - 8 hr 06/05/23 13:25 06/05/23 13:50 06/05/23 14:00 Temperature 98.6 F Pulse Rate 113 H 104 H Respiratory Rate 20 Blood Pressure 111/65 Pulse Oximetry 100 98 99 Oxygen Delivery Method Room Air 06/05/23 14:02 06/05/23 14:02 06/05/23 14:30 Temperature Pulse Rate 106 H Respiratory Rate Blood Pressure 113/61 109/56 L Pulse Oximetry 99 Oxygen Delivery Method Room Air 06/05/23 14:30 06/05/23 15:00 06/05/23 15:00 Temperature Pulse Rate 91 H 91 H Respiratory Rate Blood Pressure 113/57 L Pulse Oximetry 97 96 Oxygen Delivery Method 06/05/23 15:30 06/05/23 15:30 06/05/23 16:00 Temperature Pulse Rate 88 86 Respiratory Rate Blood Pressure 119/55 L Pulse Oximetry 96 96 Oxygen Delivery Method 06/05/23 16:00 Temperature Pulse Rate Respiratory Rate Blood Pressure 104/55 L Pulse Oximetry Oxygen Delivery Method MDM - Fever Lab Data 06/05/23 13:50 06/05/23 13:50 Labs: Lab Results 06/05/23 06/05/23 Range/Units 13:50 14:32 WBC 8.9 (4.5-11.0) X10^3/uL RBC 4.43 (4.0-5.2) X10^6/uL Hgb 13.0 (12.0-16.0) g/dL Hct 38.2 (36-46) % MCV 86.3 (80-100) fL MCH 29.3 (26-34) PG MCHC 33.9 (30-36) % RDW 12.7 (11.6-14.8) % Plt Count 321 (150-400) X10^3/uL Neut % (Auto) 86.5 H (50-75) % Lymph % (Auto) 4.1 L (25-40) % [place] % (Auto) 8.7 (3-14) % Eos % (Auto) 0.5 L (2-4) % Baso % (Auto) 0.2 (0-2) % Neut # (Auto) 7700 H (1071-5538) /uL Lymph # (Auto) 400 L (8301-5875) /uL [place] # (Auto) 800 (0-900) /uL Eos # (Auto) 0 (0-450) /uL Baso # (Auto) 0 (0-100) /uL D-Dimer 437 (<500) ng/ml Sodium 135 L (137-145) mmol/L Potassium 3.9 (3.4-5.1) mmol/L Chloride 101 (98-107) mmol/L Carbon Dioxide 27 (22-32) mmol/L BUN 8 (7-17) mg/dL Creatinine 0.60 (0.52-1.04) mg/dL Estimated GFR > 60 (>60) mL/min BUN/Creatinine Ratio 13.3 (6-22) Glucose 111 H (70-100) mg/dL Calcium 10.0 (8.4-10.2) mg/dL Total Bilirubin 0.6 (0.2-1.3) mg/dL AST 26 (14-36) IU/L ALT 20 (<35) IU/L Alkaline Phosphatase 59 (38-126) U/L Total Protein 8.2 (6.3-8.2) g/dL Albumin 4.5 (3.5-5.0) g/dL Globulin 3.7 (1.7-4.1) g/dL Albumin/Globulin Ratio 1.2 (1.0-2.8) Urine Color Yellow Urine Appearance Clear Urine pH 7.0 (4.5-8.0) Ur Specific [place] 1.010 (1.000-1.035) Urine Protein Negative (Negative) Urine Glucose (UA) Negative (Negative) g/dL Urine Ketones Negative (NEGATIVE) Urine Occult Blood Negative (Negative) Urine Nitrate Negative (Negative) Urine Bilirubin Negative (NEGATIVE) Urine Urobilinogen 0.2 (0.2) E.U./dL Ur Leukocyte Esterase Negative (NEGATIVE) Urine RBC None seen (0-5/HPF) Urine WBC None seen (0-5/HPF) Ur Squamous Epith Cells None seen D (0-5/HPF) Urine Bacteria None seen (None) Ur Culture Indicated? Cult not indicated Urine Test Cancelled SARS-CoV-2 (PCR) Positive H (Negative) Influenza A (RT-PCR) Flu a negative (NEGATIVE) Influenza B (RT-PCR) Flu b negative (NEGATIVE) RSV (PCR) Negative (Negative) Point of Care Testing Test Results Negative MDM Narrative Medical decision making narrative: Well-appearing woman in no distress but she does have a resting tachycardia. Will check a D-dimer given her recent injury looking for evidence of pulmonary emboli which I think is not very likely. We will do plain x-ray of the chest if D-dimer is negative. 1640 I do not think further pursuing the idea of pulmonary embolism is necessary given the COVID positive test. Discharge Plan Departure Patient Disposition: Home Clinical Impression: COVID-19 Activity Restrictions/Additional Instructions: You have a COVID-19 infection. There is no specific treatment that is indicated for someone of your health status, that being young healthy person. You will feel less terrible if you drink lots of fluids and get extra rest and take Tylenol 1000 mg together with ibuprofen 600 mg every 6 hours around the clock for the next few days. Return to the ED if you have shortness of breath at rest or other severe symptoms. Follow-up in a week if your symptoms are not pretty much resolved. Prescriptions: No Action ACETAMINOPHEN Qty: 0 [OXYCODONE] 5 mg PO Qty: 0 levothyroxine [Synthroid] 25 mcg tablet Qty: 0 phenazopyridine [Pyridium] 200 MG tablet 200 mg PO TID PRN2 Days Qty: 0 0RF sulfamethoxazole-trimethoprim 800 MG/160 MG tablet 1 tab PO BID 5 Days Qty: 0 0RF Stand Alone Forms: Patient Portal/API
[2023-06-05] MEDS: ACETAMINOPHEN 325 MG TABLET 975 MG PO (13:58)
[2023-06-05] MEDS: IBUPROFEN 400 MG TABLET 800 MG PO (13:58)
[2023-06-05 14:02] LABS: Add Manual Diff / Slide Review NO; Basophils Absolute Auto 0 /uL (0-100); Basophils Percent Auto 0.2 % (0-2); Eosinophils Absolute Auto 0 /uL (0-450); Eosinophils Percent Auto 0.5 % (2-4); Hematocrit 38.2 % (36-46); Lymphocytes Absolute Auto 400 /uL (1100-4500); Lymphocytes Percent Auto 4.1 % (25-40); Mean Corpuscular HGB Conc 33.9 % (30-36); Mean Corpuscular Hemoglobin 29.3 PG (26-34); Mean Corpuscular Volume 86.3 fL (80-100); Monocytes Absolute Auto 800 /uL (0-900); Monocytes Percent Auto 8.7 % (3-14); Neutrophils Absolute Auto 7700 /uL (1500-7000); Neutrophils Percent Auto 86.5 % (50-75); Platelet Count 321 X10^3/uL (150-400); Red Blood Cell Count 4.43 X10^6/uL (4.0-5.2); Red Cell Distribution Width 12.7 % (11.6-14.8); White Blood Cell Count 8.9 X10^3/uL (4.5-11.0)
[2023-06-05 14:14] LABS: Alanine Aminotransferase 20 IU/L (<35); Albumin 4.5 g/dL (3.5-5.0); Albumin Globulin Ratio 1.2 (1.0-2.8); Alkaline Phosphatase 59 U/L (38-126); Aspartate Aminotransferase 26 IU/L (14-36); BUN Creatinine Ratio 13.3 (6-22); Bilirubin Total 0.6 mg/dL (0.2-1.3); Blood Urea Nitrogen 8 mg/dL (7-17); Carbon Dioxide 27 mmol/L (22-32); Chloride 101 mmol/L (98-107); Estimated Glomerular Filt Rate > 60 mL/min (>60); Globulin 3.7 g/dL (1.7-4.1); Glucose 111 mg/dL (70-100); HEMOLYSIS < 15 (0-50); Potassium 3.9 mmol/L (3.4-5.1); Sodium 135 mmol/L (137-145); Total Protein 8.2 g/dL (6.3-8.2)
[2023-06-05 14:17] LABS: D Dimer 437 ng/ml (<500)
[2023-06-05 14:36] LABS: Appearance Urine UA CLEAR; Bilirubin Urine UA NEGATIVE (NEGATIVE); Color Urine UA YELLOW; Glucose Urine UA NEGATIVE (Negative); Ketones Urine UA NEGATIVE (NEGATIVE); Leukocyte Esterase Urine UA NEGATIVE (NEGATIVE); Nitrite Urine UA NEGATIVE (Negative); Occult Blood Urine UA NEGATIVE (Negative); Protein Urine UA NEGATIVE (Negative); Urobilinogen Urine UA 0.2 E.U./dL (0.2)
[2023-06-05 14:42] LABS: Influenza A - CEPHEID Flu A NEGATIVE (NEGATIVE); Influenza B - CEPHEID Flu B NEGATIVE (NEGATIVE); Respiratory Syncytial Virus Negative (Negative)
[2023-06-05 14:43] LABS: Bacteria Urine None Seen; Culture Indicated Urine Cult Not Indicated; RBC Urine None Seen (0-5/HPF); Squamous Epithelial Cell Urine None Seen (0-5/HPF); WBC Urine None Seen (0-5/HPF)
[2023-06-05 14:44] LABS: COVID-19 CEPHEID 4-PLEX PCR POSITIVE (Negative)
== END 2023-06-05 16:45 | disposition home or self-care (01) ==
PROVIDERS: Emergency Provider Family Medicine Addiction Medicine
DX: U07.1 COVID-19 (principal); R06.02 Shortness of breath; M54.50 Low back pain, unspecified
CPT/HCPCS: 0241U; 36415; 80053; 81001; 81025; 85025; 85379; 99283; 99284

== ENCOUNTER → 2023-09-13 | Outpatient (CLI) | payer OTHER, SELFPAY ==
--- NOTE | 2023-09-13 10:45 | DI.US.S_ITS ---
PROCEDURE: US THYROID INDICATIONS: SINGLE LEFT NODULE ON RECENT CT TECHNIQUE: Real-time scanning was performed of the thyroid gland, with image documentation. COMPARISON: None. FINDINGS: Thyroid: Right lobe measures 4.4 x 1.3 x 1.6 cm. Left lobe measures 5.1 x 2.2 x 2.1 cm. Isthmus is 0.2 cm thick. Echotexture is homogeneous. Nodule number: 1 Location: Left mid inferior Size: 2.5 x 1.8 x 1.9 cm. Composition: Solid Echogenicity: Hypoechoic Shape: wider than tall. Margins: Smooth Echogenic foci: None Total points: 4 ACR TI-RADS category: 4 IMPRESSION: Nodule 1 is considered category 4. Secondary to size, FNA is recommended. ACR TI-RADS definitions and recommendations: TI-RADS 1 (benign): 0 points. FNA not needed. TI-RADS 2 (not suspicious): 2 points. FNA not needed. TI-RADS 3 (mildly suspicious): 3 points. * FNA if 2.5 cm or larger, follow up if 1.5 cm or larger (at 1, 3, and 5 years). TI-RADS 4 (moderately suspicious): 4-6 points. * FNA if 1.5 cm or larger, follow up if 1 cm or larger (at 1, 2, 3, and 5 years). TI-RADS 5 (highly suspicious): 7 points or more. * FNA if 1 cm or larger, follow up if 0.5 cm or larger (every year for 5 years). Dictated by: Viviana Gurrola M.D. on 09/13/2023 at 13:39 Approved by: Viviana Gurrola M.D. on 09/13/2023 at 13:41
== END ==
LOC: US 10:43
PROVIDERS: Referring Provider Nurse Practitioner Family; Visit Provider Nurse Practitioner Family
DX: E04.1 Nontoxic single thyroid nodule (principal)
CPT/HCPCS: 76536

== ENCOUNTER → 2024-01-14 13:55 | Outpatient (CLI) | payer OTHER, SELFPAY ==
--- NOTE | 2024-01-14 13:56 | DI.MRI.S_ITS ---
PROCEDURE: MR LUMBAR SPINE WO CON INDICATIONS: LOW BACK PAIN / RADICULOPATHY TECHNIQUE: Noncontrast sagittal T1 spin echo and T2 fast echo, sagittal STIR, and T2 fast spin echo through the lumbar spine. In cases with scoliosis, additional coronal T2 fast spin echo may be performed. COMPARISON: None. FINDINGS: Image quality: Excellent. Alignment and Curvature: Grade 1 anterolisthesis of L5 on S1. Bone Marrow: Marrow is of normal overall signal. No acute vertebral body compression fractures. Scattered lipid rich osseous hemangioma There are 2 fixation screws involving the bilateral ilium and the sacrum. Spinal Cord: Conus medullaris terminates at the L1. Visualized cord demonstrates normal signal and size. Paraspinous Soft Tissues: No paravertebral masses. T12-L1: No spinal canal stenosis or foraminal stenosis. There is bilateral facet arthropathy and ligamentum flavum hypertrophy. L1-L2: No spinal canal stenosis or foraminal stenosis. There is bilateral facet arthropathy and ligamentum flavum hypertrophy. L2-L3: No spinal canal stenosis or foraminal stenosis. There is bilateral facet arthropathy and ligamentum flavum hypertrophy. L3-L4: Dorsal disc bulge mildly effaces the ventral thecal sac. Mild bilateral foraminal narrowing. There is bilateral facet arthropathy and ligamentum flavum hypertrophy. L4-L5: There is a small central disc protrusion that mildly effaces the ventral thecal sac. Mild bilateral foraminal narrowing. There is bilateral facet arthropathy and ligamentum flavum hypertrophy. L5-S1: No spinal canal stenosis or foraminal stenosis. IMPRESSION: 1. No significant spinal canal stenosis or foraminal stenosis. 2. Grade 1 anterolisthesis of L5 on S1. Dictated by: Josue Pate M.D. on 01/15/2024 at 11:31 Approved by: Josue Pate M.D. on 01/15/2024 at 11:45
== END ==
PROVIDERS: Referring Provider Nurse Practitioner Family; Visit Provider Nurse Practitioner Family
DX: M54.10 Radiculopathy, site unspecified (principal); M54.50 Low back pain, unspecified; M43.17 Spondylolisthesis, lumbosacral region
CPT/HCPCS: 72148

== ENCOUNTER 2024-05-13 13:36 | Emergency (ER) | payer OTHER, SELFPAY ==
[2024-05-13] VITALS (11 sets, daily range): BP systolic 115–138; BP diastolic 60–72; PULSE 70–93; RESP 14–18; TEMP 36.7; O2SAT 98–100; BMI 21.4
[2024-05-13 14:13] LABS: Add Manual Diff / Slide Review NO; Basophils Absolute Auto 0 /uL (0-100); Basophils Percent Auto 0.3 % (0-2); Eosinophils Absolute Auto 0 /uL (0-450); Hematocrit 39.2 % (36-46); Hemoglobin 13.5 g/dL (12.0-16.0); Lymphocytes Absolute Auto 1100 /uL (1100-4500); Lymphocytes Percent Auto 10.7 % (25-40); Mean Corpuscular HGB Conc 34.5 % (30-36); Mean Corpuscular Hemoglobin 30.2 PG (26-34); Mean Corpuscular Volume 87.6 fL (80-100); Monocytes Absolute Auto 400 /uL (0-900); Monocytes Percent Auto 4.1 % (3-14); Neutrophils Absolute Auto 8500 /uL (1500-7000); Neutrophils Percent Auto 84.9 % (50-75); Platelet Count 306 X10^3/uL (150-400); Red Blood Cell Count 4.48 X10^6/uL (4.0-5.2); Red Cell Distribution Width 12.9 % (11.6-14.8)
[2024-05-13] MEDS: ONDANSETRON 4 MG/2 ML INJ IV (14:13)
[2024-05-13 14:22] LABS: Alanine Aminotransferase 21 IU/L (<35); Albumin 4.8 g/dL (3.5-5.0); Albumin Globulin Ratio 1.4 (1.0-2.8); Alkaline Phosphatase 73 U/L (38-126); Aspartate Aminotransferase 29 IU/L (14-36); BUN Creatinine Ratio 15.2 (6-22); Bilirubin Total 0.7 mg/dL (0.2-1.3); Blood Urea Nitrogen 10 mg/dL (7-17); Calcium 9.7 mg/dL (8.4-10.2); Carbon Dioxide 22 mmol/L (22-32); Chloride 106 mmol/L (98-107); Estimated Glomerular Filt Rate > 60 mL/min (>60); Globulin 3.5 g/dL (1.7-4.1); Glucose 110 mg/dL (70-100); HEMOLYSIS < 15 (0-50); Lipase 70 U/L (23-300); Potassium 3.8 mmol/L (3.4-5.1); Sodium 137 mmol/L (137-145); Total Protein 8.3 g/dL (6.3-8.2)
--- NOTE | 2024-05-13 15:41 | ED_ITS ---
HPI - Abdominal Pain General Chief Complaint: Abdominal Pain Stated Complaint: Solid Bowels, pain stomach pain Time Seen by Provider: 05/13/24 15:41 History of Present Illness HPI narrative: Patient 39-year-old female without significant past medical history presenting today with sweating epigastric pain nausea vomiting. She reports that she has loose stool frequently but is actually having hard stool now. No one else is sick. She was working with her horse yesterday in the hoarse pinned her with the horses rear-end into a wall for a brief 2nd and then walked away. She was not thrown crushed or other significant mechanism. She has had significant injury from horses previously that she agrees this was not significant. But is just mentioning it. No chest pain or shortness of breath reports that she was not kicked or any other injury by the horse. She reports that she has had to change her clothes due to severe diaphoresis Related Data Home Medications Medication Instructions Recorded Confirmed ACETAMINOPHEN ##0 02/15/12 [OXYCODONE] 5 mg PO ##0 02/15/12 levothyroxine 25 mcg tablet ##0 11/18/16 (Synthroid) Previous Rx's Medication Instructions Recorded phenazopyridine 200 mg tablet 200 mg PO TID PRN 2 days #0 tabs 11/18/16 (Pyridium) sulfamethoxazole 800 1 tab PO BID 5 days #0 tabs 11/18/16 mg-trimethoprim 160 mg tablet levofloxacin 750 mg tablet 750 mg PO DAILY 7 days #7 tabs 05/13/24 ondansetron 4 mg disintegrating 4 mg PO Q8H PRN nausea and 05/13/24 tablet vomiting #10 tabs Allergies Allergy/AdvReac Type Severity Reaction Status Date / Time No Known Drug Allergies Allergy Verified 06/05/23 13:25 Patient History Medical History UTI (urinary tract infection) Social History lives independently: Yes Smoking Status: Former smoker Smoking Status: Former smoker alcohol intake frequency: 0-2 drinks per day Substance Use Type: does not use Exam Initial Vital Signs Initial Vital Signs: Vital Signs Temperature 98.0 F 05/13/24 13:44 Pulse Rate 92 H 05/13/24 13:44 Respiratory Rate 18 05/13/24 13:44 Blood Pressure 116/60 05/13/24 13:44 Pulse Oximetry 100 05/13/24 13:44 Oxygen Delivery Method Room Air 05/13/24 13:44 GENERAL: Alert 39-year-old female and in [no acute] distress. HEENT: Head atraumatic,EOMI, pupils reactive, face symmetric, [moist] mucous membranes CARDIOVASCULAR: Regular rate and rhythm without murmurs, rubs or gallops. RESPIRATORY: Breath sounds equal bilaterally, no wheezes rales or rhonchi. ABDOMEN: Soft, nontender. Normoactive bowel sounds all 4 quadrants. No guarding or rebound. EXTREMITIES: Normal range of motion, no clubbing or edema. Neurovascularly intact NEUROLOGICAL: Alert and oriented x4.Normal gait and speech. Cranial nerves II through XII grossly intact. SKIN: Warm, dry, no laceration, no petechiae, no rashes or lesions. Course Orders Ordered: ED Orders 05/13/24 14:00 Complete Blood Count AUTO DIFF Stat Comprehensive Metabolic Panel Stat Lipase Stat 05/13/24 17:06 US abdomen limited Stat 05/13/24 17:29 Urinalysis and Microscopic Stat Discontinued Medications Ketorolac Tromethamine (Ketorolac 30 Mg/Ml Vial) 15 mg IV NOW ONE Stop: 05/13/24 17:11 Last Admin: 05/13/24 17:20 Dose: 15 mg Documented By: ZORAIDA Levofloxacin (Levofloxacin 250 Mg Tablet) 750 mg PO NOW ONE Stop: 05/13/24 19:14 Last Admin: 05/13/24 19:23 Dose: 750 mg Documented By: SAVANNAH Ondansetron HCl (Ondansetron 4 Mg/2 Ml Inj) 4 mg IV NOW PRN PRN Reason: Nausea And Vomiting Last Admin: 05/13/24 14:13 Dose: 4 mg Documented By: ZORAIDA Ondansetron HCl (Ondansetron 4 Mg Odt) 4 mg PO NOW PRN PRN Reason: Nausea And Vomiting Vital Signs Vital signs: Vital Signs - 8 hr 05/13/24 13:44 05/13/24 13:56 05/13/24 13:59 Temperature 98.0 F Pulse Rate 92 H 82 89 Respiratory Rate 18 Blood Pressure 116/60 Pulse Oximetry 100 98 100 Oxygen Delivery Method Room Air 05/13/24 13:59 05/13/24 14:00 05/13/24 14:30 Temperature Pulse Rate 88 Respiratory Rate Blood Pressure 138/68 120/63 Pulse Oximetry 100 Oxygen Delivery Method Room Air 05/13/24 14:30 05/13/24 15:00 05/13/24 15:00 Temperature Pulse Rate 70 70 Respiratory Rate Blood Pressure 120/70 Pulse Oximetry 100 100 Oxygen Delivery Method Room Air 05/13/24 15:30 05/13/24 15:30 05/13/24 16:00 Temperature Pulse Rate 70 Respiratory Rate Blood Pressure 115/70 115/71 Pulse Oximetry 100 Oxygen Delivery Method 05/13/24 16:00 05/13/24 16:30 05/13/24 16:30 Temperature Pulse Rate 70 75 Respiratory Rate Blood Pressure 121/66 Pulse Oximetry 99 98 Oxygen Delivery Method Room Air 05/13/24 17:00 05/13/24 17:00 05/13/24 19:29 Temperature Pulse Rate 93 H 72 Respiratory Rate 14 Blood Pressure 120/69 122/72 Pulse Oximetry 99 100 Oxygen Delivery Method Room Air MDM - Abdominal Pain Lab Data 05/13/24 14:00 05/13/24 14:00 Labs: Lab Results 05/13/24 05/13/24 Range/Units 14:00 17:29 WBC 10.0 (4.5-11.0) X10^3/uL RBC 4.48 (4.0-5.2) X10^6/uL Hgb 13.5 (12.0-16.0) g/dL Hct 39.2 (36-46) % MCV 87.6 (80-100) fL MCH 30.2 (26-34) PG MCHC 34.5 (30-36) % RDW 12.9 (11.6-14.8) % Plt Count 306 (150-400) X10^3/uL Neut % (Auto) 84.9 H (50-75) % Lymph % (Auto) 10.7 L (25-40) % [place] % (Auto) 4.1 (3-14) % Eos % (Auto) 0.0 L (2-4) % Baso % (Auto) 0.3 (0-2) % Neut # (Auto) 8500 H (0081-3360) /uL Lymph # (Auto) 1100 (2027-4105) /uL [place] # (Auto) 400 (0-900) /uL Eos # (Auto) 0 (0-450) /uL Baso # (Auto) 0 (0-100) /uL Sodium 137 (137-145) mmol/L Potassium 3.8 (3.4-5.1) mmol/L Chloride 106 (98-107) mmol/L Carbon Dioxide 22 (22-32) mmol/L BUN 10 (7-17) mg/dL Creatinine 0.66 (0.52-1.04) mg/dL Estimated GFR > 60 (>60) mL/min BUN/Creatinine Ratio 15.2 (6-22) Glucose 110 H (70-100) mg/dL Calcium 9.7 (8.4-10.2) mg/dL Total Bilirubin 0.7 (0.2-1.3) mg/dL AST 29 (14-36) IU/L ALT 21 (<35) IU/L Alkaline Phosphatase 73 (38-126) U/L Total Protein 8.3 H (6.3-8.2) g/dL Albumin 4.8 (3.5-5.0) g/dL Globulin 3.5 (1.7-4.1) g/dL Albumin/Globulin Ratio 1.4 (1.0-2.8) Lipase 70 (23-300) U/L Urine Color Yellow Urine Appearance Clear Urine pH 6.5 (4.5-8.0) Ur Specific [place] 1.025 (1.000-1.035) Urine Protein Negative (Negative) Urine Glucose (UA) Negative (Negative) g/dL Urine Ketones 3+ H (NEGATIVE) Urine Occult Blood Negative (Negative) Urine Nitrate Negative (Negative) Urine Bilirubin Negative (NEGATIVE) Urine Urobilinogen 0.2 (0.2) E.U./dL Ur Leukocyte Esterase Negative (NEGATIVE) Urine RBC 0-1/hpf (0-5/HPF) Urine WBC 1-5/hpf (0-5/HPF) Ur Squamous Epith Cells 1-5 /hpf (0-5/HPF) Urine Bacteria Few (2-10) H (None) Urine Mucus 3+ H D (Negative) Ur Culture Indicated? Cult not indicated Vol Urine Centrifuged 10ml (spun) Point of care testing: Point of Care Testing Test Results Negative Urine Dip Bedside Urine Glucose Negative Bedside Urine Bilirubin - Negative Bedside Urine Ketone +++ 80 Urine Specific [place] 1.020 Bedside Urine Occult Blood - Negative Bedside Urine pH 6.0 Bedside Urine Protein - Negative Bedside Urine Urobilinogen - Negative Bedside Urine Nitrite - Negative Bedside Urine Leukocytes - Negative Esterase Imaging Data US - abdomen: Radiologist's Impression: PROCEDURE: US ABDOMEN LIMITED INDICATIONS: right upper quad pain TECHNIQUE: Real-time scanning was performed of the abdominal and retroperitoneal organs, with image documentation. COMPARISON: None. FINDINGS: Liver: Liver is normal in size and homogeneous in echotexture. Gallbladder: Gallstone measuring approximately 1.4 cm in the fundus. No wall thickening. No pericholecystic edema. Negative sonographic Hcase's sign. Biliary ducts: Intrahepatic bile ducts are non-dilated. Extrahepatic bile duct caliber measures 2.5 mm. Normal is 6-7 mm or less in diameter, or 10 mm or less post-cholecystectomy. Pancreas: Visualized portions of the pancreas are sonographically normal. Miscellaneous: No free abdominal fluid. Limited views of the spleen and left kidney appear normal. IMPRESSION: Cholelithiasis without sonographic evidence of acute cholecystitis. Dictated by: Jasper Elias M.D. on 05/13/2024 at 18:26 Approved by: Jasper Elias M.D. on 05/13/2024 at 18:28 [facility] Narrative Medical decision making narrative: Patient 39-year-old male presenting today with nausea vomiting diaphoresis and some epigastric pain. The rest of her abdomen is soft without peritoneal signs. Blood work has been reviewed WBC 10, hemoglobin 13.5 hematocrit 39 platelets 306 CMP sodium 137 potassium 3.8 chloride 106 carbon dioxide 22 BUN 10 creatinine 0.66 Bilirubin 0.7 AST 29 ALT 21 alk-phos 73 lipase 70 Ultrasound shows cholelithiasis without cholecystitis Patient is better after Zofran and Toradol At this time I think she is cholelithiasis causing her epigastric pain nausea and vomiting my do not think it is related to her horse issue yesterday. The mechanism does not seem to be significant. There is no evidence of acute cholecystitis. She does report significant sweating diaphoresis needing to change her clothing. However she has no leukocytosis. Bilirubin liver enzymes are also within normal limits nothing to suggest choledocholithiasis. At this time I will her on antibiotics just due to the diaphoresis. Recommended gallbladder diet outpatient follow-up with [facility] and strict return precautions Differential diagnosis gastroenteritis traumatic injury cholelithiasis cholecystitis choledocholithiasis pancreatitis Discharge Plan Departure Patient Disposition: Home Clinical Impression: Cholelithiasis Instructions: Gallstones Activity Restrictions/Additional Instructions: *You have been diagnosed with gallstone *What to do: At this time you can follow gallbladder diet. Please call and follow-up with general surgery no need for emergent surgery today *Continue to take medications as directed Zofran 4 mg every 8 hours if needed for nausea vomiting Levaquin 750 mg once a day for 7 days Tylenol Motrin as needed for pain *Follow up with your primary care provider in 2-3 days or call [phone] [facility] call tomorrow *Return to ER if you should have increasing pain fever persistent vomiting or any new, worsening or concerning symptoms Prescriptions: New levofloxacin 750 mg tablet 750 mg PO DAILY 7 Days Qty: 7 0RF ondansetron 4 mg tablet,disintegrating 4 mg PO Q8H PRN (Reason: nausea and vomiting) Qty: 10 0RF No Action ACETAMINOPHEN Qty: 0 [OXYCODONE] 5 mg PO Qty: 0 levothyroxine [Synthroid] 25 mcg tablet Qty: 0 phenazopyridine [Pyridium] 200 MG tablet 200 mg PO TID PRN2 Days Qty: 0 0RF sulfamethoxazole-trimethoprim 800 MG/160 MG tablet 1 tab PO BID 5 Days Qty: 0 0RF Referrals: [facility] [Provider Group] ProviderNaima [Primary Care Provider] - Stand Alone Forms: Patient Portal/API/Survey
--- NOTE | 2024-05-13 17:06 | DI.US.S_ITS ---
PROCEDURE: US ABDOMEN LIMITED INDICATIONS: right upper quad pain TECHNIQUE: Real-time scanning was performed of the abdominal and retroperitoneal organs, with image documentation. COMPARISON: None. FINDINGS: Liver: Liver is normal in size and homogeneous in echotexture. Gallbladder: Gallstone measuring approximately 1.4 cm in the fundus. No wall thickening. No pericholecystic edema. Negative sonographic Chase's sign. Biliary ducts: Intrahepatic bile ducts are non-dilated. Extrahepatic bile duct caliber measures 2.5 mm. Normal is 6-7 mm or less in diameter, or 10 mm or less post-cholecystectomy. Pancreas: Visualized portions of the pancreas are sonographically normal. Miscellaneous: No free abdominal fluid. Limited views of the spleen and left kidney appear normal. IMPRESSION: Cholelithiasis without sonographic evidence of acute cholecystitis. Dictated by: Jasper Elias M.D. on 05/13/2024 at 18:26 Approved by: Jasper Elias M.D. on 05/13/2024 at 18:28
[2024-05-13] MEDS: KETOROLAC 30 MG/ML VIAL 15 MG IV (17:20)
[2024-05-13 17:59] LABS: Appearance Urine UA CLEAR; Bilirubin Urine UA NEGATIVE (NEGATIVE); Color Urine UA YELLOW; Glucose Urine UA NEGATIVE (Negative); Ketones Urine UA 3+ (NEGATIVE); Leukocyte Esterase Urine UA NEGATIVE (NEGATIVE); Nitrite Urine UA NEGATIVE (Negative); Occult Blood Urine UA NEGATIVE (Negative); Protein Urine UA NEGATIVE (Negative); Specific Gravity Urine UA 1.025 (1.000-1.035); Urobilinogen Urine UA 0.2 E.U./dL (0.2)
[2024-05-13 18:03] LABS: pH Urine UA 6.5 (4.5-8.0)
[2024-05-13 18:09] LABS: Bacteria Urine Few (2-10); Culture Indicated Urine Cult Not Indicated; Mucus Urine 3+ (Negative); RBC Urine 0-1/HPF (0-5/HPF); Squamous Epithelial Cell Urine 1-5 /HPF (0-5/HPF); Urine Volume 10mL (spun); WBC Urine 1-5/HPF (0-5/HPF)
[2024-05-13] MEDS: levoFLOXacin 250 MG TABLET 750 MG PO (19:23)
== END 2024-05-13 19:34 | disposition home or self-care (01) ==
PROVIDERS: Emergency Provider Emergency Medicine
DX: K80.20 Calculus of gallbladder without cholecystitis without obstruction (principal); R10.13 Epigastric pain; R11.2 Nausea with vomiting, unspecified
CPT/HCPCS: 36415; 76705; 80053; 81001; 81003; 81025; 83690; 85025; 96374; 96375; 99284; J1885; J2405

== ENCOUNTER → 2024-09-16 11:08 | Outpatient (CLI) | payer OTHER, SELFPAY ==
--- NOTE | 2024-09-16 11:09 | DI.RAD.S_ITS ---
PROCEDURE: XR CHEST 2V INDICATIONS: Acute cough TECHNIQUE: 2 views of the chest were acquired. COMPARISON: None. FINDINGS: Surgical changes and devices: None. Lungs and pleura: Lungs are clear. No pleural effusions or pneumothorax. Mediastinum: Mediastinal contours are normal. Heart size is normal. Bones and chest wall: No suspicious bony abnormalities. Soft tissues appear unremarkable. IMPRESSION: No acute cardiopulmonary abnormality is seen. Approved by: Damian Akhtar M.D. on 09/16/2024 at 12:39
== END ==
PROVIDERS: Referring Provider Registered Nurse; Visit Provider Registered Nurse
DX: R05.1 Acute cough (principal)
CPT/HCPCS: 71046